=== PATIENT | female | born 1965 | race American Indian/Alaskan Native ===

== ENCOUNTER 2019-12-20 05:52 | Day surgery (SDC) | payer OTHER ==
[2019-12-20] MEDS ORDERED: GABAPENTIN 300 MG CAP PO NR (06:00)
[2019-12-20] MEDS ORDERED: MIDAZOLAM 2 MG/2 ML INJ IV NR (06:00)
[2019-12-20] MEDS ORDERED: ENOXAPARIN 40 MG/0.4 ML INJ SUB-Q SCH (06:00)
[2019-12-20] MEDS ORDERED: ceFAZolin/Water 2 GM/20 ML 2 GM/20 ML SYRINGE IV NR (06:00)
[2019-12-20] MEDS ORDERED: SCOPOLAMINE TRANSDERMAL PATCH 72 HR TD NR (06:00)
[2019-12-20] MEDS ORDERED: CELECOXIB 200 MG CAP PO NR (06:00)
[2019-12-20] MEDS ORDERED: BACTERIOSTATIC SODIUM CHLORIDE 0.9% 30 ML VIAL INFILTRATI ONE (06:25)
[2019-12-20] MEDS ORDERED: LACTATED RINGERS 1,000 ML IV SCH (07:00)
[2019-12-20] MEDS ORDERED: SODIUM CHLORIDE 0.9% 1000 ML 1,000 ML, EPINEPHrine/PF 1:1,000 1 MG, LIDOCAINE 1% 20 mL ... IJ SCH (07:00)
[2019-12-20] MEDS ORDERED: propofoL 200 MG/20 ML VIAL IV ONE (07:13)
[2019-12-20] MEDS ORDERED: HYDROmorphone 1 MG/1 ML INJ ONE (07:13)
[2019-12-20] MEDS ORDERED: ROCURONIUM 50 MG/5 ML INJ IV ONE (07:14)
[2019-12-20] MEDS ORDERED: LIDOCAINE MPF (2%) 20 MG/1 ML VIAL 5 ML ONE (07:14)
[2019-12-20] MEDS ORDERED: LIDOCAINE 1%/EPINEPHRINE 1:100,000 VIAL (20 ML) INFILTRATI ONE ×2 (07:15→08:31)
--- NOTE | 2019-12-20 07:22 | Anesthesia Consultation ---
Anesthesia Consult and Med Hx Date of service: 12/20/19 - Airway Anesthetic Teeth Evaluation: Good ROM Head & Neck: Adequate Mental/Hyoid Distance: Adequate Mallampati Class: Class II Intubation Access Assessment: Probably Good - Pulmonary Exam CTA: Yes - Cardiac Exam Cardiac Exam: RRR - Pre-Operative Health Status ASA Pre-Surgery Classification: ASA2 Proposed Anesthetic Plan: General - Pulmonary Hx Smoking: No Hx Respiratory Symptoms: No - Cardiovascular System Hx Hypertension: Yes Hx Heart Attack/AMI: No Hx Percutaneous Transluminal Coronary Angioplasty (PTCA): No - Central Nervous System CVA: No Hx Psychiatric Problems: No - Gastrointestinal Hx Gastroesophageal Reflux Disease: No - Endocrine Hx Renal Disease: No Hx Liver Disease: No Hx Insulin Dependent Diabetes: No Hx Non-Insulin Dependent Diabetes: No Hx Thyroid Disease: No - Other Systems Hx Alcohol Use: Yes (OCCA) Hx Obesity: No - Additional Comments Anesthesia Medical History Comments: No hx anesthetic complications.
[2019-12-20] MEDS ORDERED: HYDROmorphone 1 MG/1 ML INJ IV PRN (07:23)
--- NOTE | 2019-12-20 07:23 | Anesthesia Day of Surgery ---
Anesthesia Day of Surgery - Day of Surgery Patient Examined: Yes Patient H&P Reviewed: Yes Patient is NPO: Yes
[2019-12-20] MEDS ORDERED: LACTATED RINGERS 1,000 ML ONE ×2 (10:48→14:44)
[2019-12-20] MEDS ORDERED: ePHEDrine SULFATE 50 MG/1 ML INJ ONE (14:10)
[2019-12-20] MEDS ORDERED: ONDANSETRON 4 MG/2 ML INJ ONE (14:46)
[2019-12-20] MEDS ORDERED: PHENYLEPHRINE/NS 1,000 MCG/10 ML SYRINGE (OR USE) IV ONE (15:00)
--- NOTE | 2019-12-20 17:05 | Operative Report ---
Operative Report Operative Report: Plastic Surgery Operative Note Preoperative Diagnosis: Unacceptable cosmetic appearance Postopertive Diagnosis: Same Procedure: Full lipoabdominoplasty; Liposuction of the posterior waist and [place] butt lift with fat grafting to the butt and hips Surgeon: Dr. Jessika Del Toro Coagulation Operator: VALERIE Mckeon Anesthesia: General endotracheal EBL: 50cc Indications: This patient is a 54 year old AAF who presented with complaint of lost buttock fullness and volume as well as excess skin and fat of the abdomend despite a regular diet and exercise regimen. She has also had stretch verduzco on her abdomen and loose skin that affect her self confidence. She desires a tummy tuck to achieve a flat abdomen, and also to use the fat for grafting to her buttocks and hips. We discussed the benefits and risks of surgery including implant rupture, infection, hematoma, seroma, scarring, fat necrosis, fat e mbolus, fat resorption, skin necrosis, umbilical necrosis, asymmetry and the need for further surgery. Patient understands and accepts these risks and desires to proceed with surgery. Procedure: After marking in preoperative holding the patient was brought into the operating room and placed supine on the OR table. After induction of adequate general endotracheal anesthesia, the patient's chest was prepped and draped in the usual sterile surgical fashion. To begin, markings were refreshed and 1% lidocaine with epinephrine was injected into the liposuction cannula entry points. Using an 11 blade, cannula entry incisions were made in the lower abdomen, and 3 L of tumescent solution was infiltrated into the tissues of the abdomen and flanks. Power assisted liposcution was performed until aspirate was blood-tinged. We then began the tummy tuck portion of the procedure, creating a lower abdominal incision using a 10 blade, which was carried through subcutaneous tissue using the electrocautery. This dissection along the rectus fascia was carried cephalad to the xiphoid process. After which point rectus diastasis (measuring 6 cm at its widest) was repaired using 0 PDO Quill suture in 2 layers. The bed was then placed in a beach chair position and the lower abdominal pannus was marked and sharply excised. The weight of the excised skin was 1.34 kg. A 19 Fr Cliff drain was placed and secured with a 2-0 Nylon suture and we began closure of her incisions in 3 layers beginning with a PDO Quill suture to approximate Justin's fascia follwed by 3-0 Monoderm Quill in 2 layers. The umbilicus was delivered through the abdominal skin flap and secured with 2- 0 Monocryl and 4-0 subcuticular sutures. All incisions were then sealed with Dermabond. The patient was then placed in the prone position and once again cannula entry sites of the posterior waist and buttocks were injected with local anesthesia and opened with an 11 blade. 1 L of tumescent solution was infiltrated into the subcutaneous tissue of the posterior waist and lower back, and power assisted liposuction used to remove excess fat. Once satisfied with the contour we began the fat grafting portion of the procedure. Using blunt cannulas, fat was injected into the subcutaneous tissue of the buttocks and hips bilaterally until a desireable contour was achieved. A total of 1700cc of pure fat was injected into each side. Once fat grafting was complete, 4-0 Monocryl was used to close all cannula entry points. All areas where incisions were placed were then dressed with abdominal pads and the patient was then awakened from general anesthesia and her compression garment was placed. She was then transferred to PACU in stable condition. There were no complications. All sponge, needle and instrument counts were correct at the end of the case.
--- NOTE | 2019-12-20 17:49 | Post Anesthesia Evaluation ---
- Post Anesthesia Evaluation Patient Participated: Yes Airway Patent: Yes Stable Respiratory Function: Yes Nausea/Vomiting: No Temp > 96.8F: Yes Pain Manageable: Yes Adequeate Hydration: Yes Anesthesia Complications: No
[2019-12-20 18:19] VITALS: BP 129/75
== END 2019-12-20 16:50 | disposition home or self-care (01) ==
LOC: OR 05:52
PROVIDERS: ATTEND Plastic Surgery
DX: Z41.1 Encounter for cosmetic surgery (principal); I10 Essential (primary) hypertension; Z72.89 Other problems related to lifestyle; Z98.890 Other specified postprocedural states; Z79.899 Other long term (current) drug therapy
CPT/HCPCS: 15771; 15772; 15830; 15847; 15877; J0171; J0690; J1170; J1650; J2250; J2370; J2405; J2704; J7030; J7120